=== PATIENT | female | born 1985 | race African-American/Black ===

== ENCOUNTER 2019-04-09 08:34 | Emergency (ER) | payer OTHER ==
[~2019-04-09] VITALS: Ht 165.1 cm; Wt 68.0 kg
[2019-04-09] MEDS ORDERED: ACETAMINOPHEN 325MG TABLET PO ONE (10:15)
[2019-04-09 10:42] LABS: CLARITY URINE CLEAR (CLEAR); COLOR URINE YELLOW (YELLOW); KETONES URINE NEGATIVE (NEGATIVE); LEUKOCYTE ESTERASE URINE NEGATIVE (NEGATIVE); NITRITE URINE NEGATIVE (NEGATIVE); OCCULT BLOOD URINE NEGATIVE (NEGATIVE); PH URINE 6.5 (4.5-8.0); PROTEIN URINE TRACE (NEGATIVE); UROBILINOGEN URINE 0.2 E.U./dL (0.2-1.0)
[2019-04-09] MEDS ORDERED: SODIUM CHLORIDE 0.9% 1,000 ML IV ONE (11:02)
[2019-04-09] MEDS: METOCLOPRAMIDE HCL 10MG/2ML VIAL IV ONE ×2 (11:14→12:19)
[2019-04-09 11:31] LABS: BASOPHILS % 0.5 % (0.0-2.0); EOSINOPHILS % 5.9 % (0.0-5.0); HEMATOCRIT. 43.3 % (36.0-48.0); HEMOGLOBIN. 14.3 g/dL (12.0-16.0); LYMPHOCYTES % 31.7 % (20.0-50.0); MEAN CORPUSCULAR HEMOGLOBIN 27.8 pg (28.0-32.0); MEAN CORPUSCULAR VOLUME 83.8 fL (81.0-99.0); MEAN PLATELET VOLUME 9.5 fl (7.4-10.4); MONOCYTES % 7.6 % (2.0-8.0); NEUTROPHILS % 54.3 % (40.0-76.0); PLATELET 308 x1000/uL (130-400); RED BLOOD CELL COUNT 5.16 mill/uL (4.2-5.4)
[2019-04-09 11:37] LABS: CHLORIDE 106 mEq/L (98-107)
[2019-04-09] MEDS ORDERED: KETOROLAC 30MG/ML VIAL IV ONE (12:15)
[2019-04-09] MEDS ORDERED: TETANUS, DIPHTHERIA, PERTUSSIS VAC/PF 0.5ML (>7YR OLD) IM ONE (13:15)
[2019-04-09 14:01] VITALS: BP 121/78
== END 2019-04-09 14:05 | disposition home or self-care (01) ==
LOC: ER 08:34
DX: G44.209 Tension-type headache, unspecified, not intractable (principal); R03.0 Elevated blood-pressure reading, without diagnosis of hypertension
CPT/HCPCS: 36415; 70450; 80053; 81003; 81025; 85025; 96361; 96374; 96375; 99284; J1885; J2765; J7030; 90715